=== PATIENT | male | born 2005 | race Two or more races ===

== ENCOUNTER 2025-03-12 14:59 | Emergency (ER) | payer MEDICAID ==
[~2025-03-12] VITALS: Ht 167.6 cm; Wt 63.5 kg
[2025-03-12 15:06] VITALS: TEMP 98.3
[2025-03-12] MEDS ORDERED: FLUORESCEIN SODIUM OPHTH 1 EA STRIP ONE (15:42)
[2025-03-12] MEDS ORDERED: TETRAcaine 5 ML BOTTLE ONE (15:43)
[2025-03-12 19:26] VITALS: BP 133/80; O2SAT 99
[2025-03-12] MEDS ORDERED: ERYT3.5O9 EACHEYE (19:29)
== END 2025-03-12 19:47 | disposition home or self-care (01) ==
LOC: ER 15:04
DX: H57.89 Other specified disorders of eye and adnexa (principal); H91.90 Unspecified hearing loss, unspecified ear
CPT/HCPCS: 70450-TC; 70480-TC